=== PATIENT | female | born 2005 | race Caucasian/White ===

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

== ENCOUNTER → 2025-03-23 10:37 | Outpatient (REF) | payer BC, OTHER, SELFPAY ==
[2025-03-23 11:58] LABS: Hematocrit 43.9 % (37.0-47.0); Hemoglobin 14.3 g/dL (12.0-16.0); Mean Corp Hgb Conc. 32.6 g/dL (33.0-37.0); Mean Corpuscular Volume 86.2 fL (81.0-99.0); Nucleated Red Blood Cells % 0 %; Platelet Count 387 10^3/uL (130-400); Red Cell Dist. Width 12.8 % (11.5-14.5)
[2025-03-23 12:10] LABS: Glycohemoglobin (HgbA1c) 5.6 % (4.0-5.9)
[2025-03-23 12:39] LABS: ALT (SGPT) 19 U/L (0-35); AST (SGOT) 27 U/L (14-36); Albumin 4.9 g/dl (3.5-5.0); Alkaline Phosphatase 85 U/L (38-126); Blood Urea Nitrogen 14 mg/dl (7-17); Calcium 10.1 mg/dl (8.4-10.2); Carbon Dioxide 29 mmol/L (22-30); Chloride 100 mmol/L (98-107); Glucose 79 mg/dl (70-99); HDL Cholesterol 72 mg/dl; LDL Cholesterol, Calculated 98 mg/dl; Potassium 4.1 mmol/L (3.5-5.1); Sodium 138 mmol/L (135-145); Total Protein 8.2 g/dl (6.3-8.2); Very Low Density Lipoprotein 30 mg/dl (0-30); eGFR > 60.00
[2025-03-23 12:43] LABS: C-Reactive Protein < 5.00 mg/L (0.0-10.00)
[2025-03-23 13:00] LABS: Vitamin D, 25-OH*** 53.6 ng/mL (30-80)
[2025-03-23 13:27] LABS: Hepatitis C Antibody Negative (Negative)
[2025-03-23 13:33] LABS: Vitamin B12 715 pg/ml (239-931)
== END ==
LOC: REG 10:37
PROVIDERS: ATTENDING PHYSICIAN Internal Medicine
DX: R11.14 Bilious vomiting (principal); Z13.1 Encounter for screening for diabetes mellitus
CPT/HCPCS: 36415; 80053; 80061; 82306; 82607; 82784; 83036; 83516; 83993; 84443; 85025; 86140; 86231; 86803; 87389